=== PATIENT | male | born 1990 | race Two or more races ===

== ENCOUNTER 2021-03-25 08:54 | Emergency (ER) | payer OTHER ==
[2021-03-25 09:03] VITALS: BP 132/87; PULSE 75; TEMP 98.2; BMI 27.6
[2021-03-25] MEDS ORDERED: SODIUM CHLORIDE 0.9% 500 ML INFUS.BAG IV ONE (10:04)
[2021-03-25] MEDS ORDERED: FAMOTIDINE 20 MG/50 ML IVPB 20 MG/50 ML MG IVPB ONE (10:04)
[2021-03-25] MEDS ORDERED: MAG HYDROX/AL HYDROX/SIMETH 30 ML UNIT-DOSE CUP PO ONE (10:05)
[2021-03-25 10:41] LABS: BASO % 0.6 % (0-2.0); HEMATOCRIT 49.4 % (35.4-49); HEMOGLOBIN 16.6 GM/dL (11.7-16.9); LYMPH % 44.6 % (8-40); MCHC 33.7 g/dl (32.0-35.9); MEAN CELL VOLUME 89.1 fl (80-96); MEAN PLT VOLUME 8.2 fl (7.5-11.1); MONO % 9.5 % (3.8-10.2); NEUT % 41.3 % (42.8-82.8); PLATELET COUNT 240 10^3/uL (134-434); RBC 5.54 M/mm3 (4.00-5.60); RDW 13.2 % (11.9-15.9); WHITE BLOOD COUNT 6.1 K/mm3 (4.0-10.0)
[2021-03-25 10:59] LABS: CALCIUM 9.2 mg/dL (8.5-10.1)
[2021-03-25 11:03] LABS: CREATININE 1.1 mg/dL (0.55-1.3)
[2021-03-25 11:04] LABS: BILIRUBIN,TOTAL 0.2 mg/dL (0.2-1); TOT PROT 7.5 g/dl (6.4-8.2)
== END 2021-03-25 13:45 | disposition home or self-care (01) ==
LOC: JER 08:54
PROC: 3E033NZ Introduction of Analgesics, Hypnotics, Sedatives into Peripheral Vein, Percutaneous Approach (ICD-10-PCS; principal; 2021-03-25)
DX: R10.13 Epigastric pain (principal)
CPT/HCPCS: 36415; 59025; 71046-TC-FY; 76705-TC; 80053; 83690; 85025; 90471; 93005; 93010; 96360; 96365; 99284-25; G0463-25